=== PATIENT | female | born 1980 | race Caucasian/White ===

== ENCOUNTER 2016-11-21 18:58 | Emergency (ER) | payer OTHER ==
[~2016-11-21] VITALS: Ht 170.2 cm; Wt 79.1 kg
[~2016-11-21 18:58] MED LIST: AMBIEN10 MG PO; ATARAX,VISTARIL25 MG PO; BACTRIM,SEPT1 TABLET PO; BENTYL10 MG PO; COMPRO25 MG PR; ERYTHROCIN BAS250 MG PO; K-DUR20 MEQ PO; METAMUCIL PACKE1 PKT PO; NAPROSYN500 MG PO; NOHOMEMEDS; NORCO 5/3251 TABLET PO; NORVASC10 MG PO; OXYCODONE-ACET1 EACH PO; PERCOCET 10/1 TABLET PO; PERCOCET 5/31 TABLET PO; PROMETHAZINE HC25 M1 PO; PROTONIX40 MG PO; PROZAC10 MG PO; TENORMIN25 MG PO; ULTRAM50 MG PO; XANAX0.5 MG PO; ZOFRAN4 MG PO
[2016-11-21 21:54] VITALS: BP 162/116
[2016-11-21] MEDS ORDERED: XANAX0.5 MG PO (22:51)
== END 2016-11-21 23:08 | disposition home or self-care (01) ==
LOC: EME 18:58
DX: F41.0 Panic disorder [episodic paroxysmal anxiety] (principal); J45.909 Unspecified asthma, uncomplicated; I10 Essential (primary) hypertension; Z87.442 Personal history of urinary calculi
CPT/HCPCS: 90832; 99281; 99284; J2060; J2250; J7030